=== PATIENT | female | born 1960 | race Caucasian/White ===

== ENCOUNTER → 2016-08-13 | Outpatient (CLI) | payer BC ==
[~2016-08-13] VITALS: Ht 165.1 cm; Wt 84.9 kg
[~2016-08-13] MED LIST: CEFAZOLIN 2000 MG/60 ML D5W IV SCH; CYCL5TAB PO; HYDR-3983 PO; LACTATED RINGER'S 1000ML 1,000 ML IV SCH; MELO7.5T5 PO; RTL20 PO; THYR90TA PO
[2016-08-13 14:10] VITALS: Ht 165.1 cm; Wt 84.9 kg
--- NOTE | 2016-08-13 14:44 | PAT Medication Instructions ---
Service Date Aug 13, 2016. Current Home Medication List Cyclobenzaprine Hcl (Flexeril), 5 MG PO TID Hydrocodone/Acetaminophen 7.5MG/325MG ([place] 7.5MG/325MG), 1 TAB PO Q6H PRN for N Meloxicam (Mobic), 7.5 MG PO QAM Methylphenidate (Ritalin), 30 MG PO BID Thyroid ([place] Thyroid), 90 MG PO QAM Medication Instructions For Your Scheduled Surgery - Hold the following medications the morning of surgery: Methylphenidate (Ritalin), 30 MG PO BID Meloxicam (Mobic), 7.5 MG PO QAM (not told to hold by surgeon) Cyclobenzaprine Hcl (Flexeril), 5 MG PO TID - Take the following medications the morning of surgery with a sip of water: Thyroid ([place] Thyroid), 90 MG PO QAM Hydrocodone/Acetaminophen 7.5MG/325MG ([place] 7.5MG/325MG), 1 TAB PO Q6H PRN ( can take up to four hours prior to surgery if needed) - Take the following medications as scheduled the night before surgery: Methylphenidate (Ritalin), 30 MG PO BID Hydrocodone/Acetaminophen 7.5MG/325MG ([place] 7.5MG/325MG), 1 TAB PO Q6H PRN Cyclobenzaprine Hcl (Flexeril), 5 MG PO TID If you have any questions please call us at [phone] or [phone] ( [place]) or [phone]
--- NOTE | 2016-08-13 15:21 | DIAGNOSTIC IMAGING REPORT ---
CHEST PREADMISSION(PA/LAT) CLINICAL HISTORY: PAT preoperative evaluation COMPARISON STUDY: No previous studies for comparison. FINDINGS: The cardiomediastinal silhouette is unremarkable. Diaphragms smooth. Focal atelectasis left lateral costophrenic angle. Lungs otherwise appear clear. IMPRESSION: Focal atelectasis left base. Otherwise negative study Electronically signed by: Kahlil Amaral M.D. 08/13/2016 3:20 PM Dictated Date/Time: 08/13/2016 3:18 PM
[2016-08-13 15:30] LABS: BASO % 0.2 %; BASO ABS # 0.02 K/uL (0-0.2); COMPLETE YES; EOS % 1.4 %; HEMATOCRIT 42.8 % (37-47); IG% 0.1 %; LYMPH % 24.6 %; LYMPH ABS # 2.11 K/uL (1.2-3.4); MEAN CELL VOLUME 87.2 fL (80-100); MEAN CORPUSCULAR HEMOGLOBIN 28.9 pg (25-34); MEAN CORPUSCULAR HGB CONC 33.2 g/dl (32-36); MEAN PLATELET VOLUME 9.4 fL (7.4-10.4); MONO % 6.3 %; NEUT % 67.4 %; PLATELET COUNT 314 K/uL (130-400); RED BLOOD COUNT 4.91 M/uL (4.2-5.4); WHITE BLOOD COUNT 8.56 K/uL (4.8-10.8)
[2016-08-13 15:38] LABS: BUN/CREATININE RATIO 17.5 (10-20); CALCIUM 8.7 mg/dl (8.5-10.1); CREATININE 0.72 mg/dl (0.60-1.20)
[2016-08-13 15:43] LABS: URINE APPEARANCE CLEAR (CLEAR); URINE BILIRUBIN NEG (NEG); URINE COLOR YELLOW; URINE EPITHELIAL CELL AUTO 20-30 /lpf (0-5); URINE NITRITE NEG (NEG); URINE SPECIFIC GRAVITY 1.017 (1.000-1.030); UROBILINOGEN NEG (NEG)
[2016-08-13 16:32] LABS: MANUAL MICROSCOPIC REQUIRED? NO; REVIEW REQ? NO
== END ==
LOC: C.LAB 08:00 → EDSTATUS 08-25 11:15
PROVIDERS: ATTEND Orthopaedic Surgery Orthopaedic Surgery of the Spine
DX: Z01.818 Encounter for other preprocedural examination (principal)